=== PATIENT | male | born 1965 | race Caucasian/White ===

== ENCOUNTER 2023-06-01 16:06 | Emergency (ER) | payer MEDICARE, MEDICAID, SELFPAY ==
[2023-06-01 16:15] VITALS: BP 131/91; PULSE 101; RESP 19; TEMP 36.9; O2SAT 100; BMI 21.2
--- NOTE | 2023-06-01 16:21 | EXP.UTC ---
Discharge Plan Disposition Patient Disposition: Home, Self-Care Condition: Good Prescriptions Prescriptions: New ciprofloxacin HCl [Cipro] 500 mg tablet 500 mg PO BID 10 Days Qty: 20 0RF No Action pantoprazole 40 mg tablet,delayed release (DR/EC) 40 mg PO BID Patient Comments: TAKE ONE (1) TABLET BY MOUTH TWICE DAILY Referrals Follow up/Referrals: Tasha Gomes APRN [Primary Care Provider] - See instructions Activity Restrictions/Add. Instructions Additional Instructions/Restrictions: Drink plenty of fluids. Take tylenol for pain or fever. Take the medications as directed. Follow up with your regular doctor. GO TO THE ER FOR ANY WORSENING SYMPTOMS If your pain does not improve by later tonight, I want you to return and go to the ER to be evaluated for a kidney stone. Clinical Impressions Clinical Impression: Low back pain, UTI (urinary tract infection) Instructions Patient Instructions: Urinary Tract Infection, DI for Low Back Pain, Ciprofloxacin, Methylprednisolone Injection Discharge ED Provider: Olivier Rojas [facility] General Stated complaint: back pain Time Seen by Provider: 06/01/23 16:21 History of Present Illness Provider Complaint: He c/o low back pain for the past 3 days. He rates his pain as a 4/10 at this time. He denies any injury. He states that the pain was radiating down his right leg up until today. It has stopped radiating. The pain is not constant. 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 Related Data Home Medications Medication Instructions Recorded Confirmed pantoprazole 40 mg tablet,delayed 40 mg PO BID GERD 06/01/23 06/01/23 release Previous Rx's Medication Instructions Recorded ciprofloxacin HCl 500 mg tablet 500 mg PO BID 10 days #20 tabs 06/01/23 (Cipro) Allergies Allergy/AdvReac Type Severity Reaction Status Date / Time No Known Allergies Allergy Verified 06/01/23 16:34 [facility] Disclaimer: The information contained in this section may have been updated after the patient was seen, as this information can be updated by other users. Social History Smoking Status: Former smoker alcohol intake: former current occupational status: retired Travel in the last 8 weeks: None ROS Obtained: Yes All systems reviewed & no additional complaints except as documented Constitutional Constitutional: Denies chills and Denies fever(s) Eyes Eyes: Denies eye discharge ENT Ears, Nose, Mouth, and Throat: Denies dizziness, Denies otalgia and Denies sore throat Cardiovascular Cardiovascular: Denies chest pain Respiratory Respiratory: Denies shortness of breath, Denies chest congestion, Denies cough, Denies stridor and Denies wheezing Gastrointestinal Gastrointestingal: Denies nausea or vomiting Genitourinary Male Genitourinary: Reports as per HPI, Reports difficulty urinating, Reports flank pain, Denies hematuria, Reports urinary frequency, Reports urinary hesitancy, Denies urinary incontinence and Denies urinary urgency Musculoskeletal Musculoskeletal: Reports system reviewed and no additional complaints, except as documented and Denies arthralgias Integumentary/Breasts Skin/Breast: Denies rash Neurologic Neurologic: Denies dizziness and Denies paresthesias Allergic/Immunologic Allergic/Immunologic: Denies wheezing Physical Exam General General appearance: alert and in no apparent distress Head Head exam: atraumatic, normocephalic and normal inspection Eye Eye exam: Present normal appearance, PERRL and EOMI ENT ENT exam: Present normal exam, normal oropharynx, mucous membranes moist, TM's normal bilaterally and normal external ear exam Neck Neck exam: Present normal inspection, full ROM and trachea midline; Absent meningismus or lymphadenopathy Chest Chest inspection: Present normal inspection a
[2023-06-01 16:31] LABS: Apearance,Urine Cloudy (Clear); Color,Urine Dark Yellow (Yellow); Glucose,Urine (UA) Negative (Negative); Ketones,Urine Negative (Negative); PH,Urine 5.5 (5.0-8.5); Protein,Urine 1+ (Negative)
[2023-06-01 16:32] LABS: Bilirubin,Urine 1+ (Negative); Blood, Urine Trace (Negative); UTC Leukocyte Esterase,Urine Negative (Negative); UTC Nitrate,Urine Negative (Negative); Urobilinogen,Urine 0.2 EU/dl (0.2)
[2023-06-01 17:06] LABS: Basophils # 0.1 K/mm3 (0-0.2); Basophils % 0.8 % (0.1-2.0); Eosinophils # 0.3 K/mm3 (0.0-0.4); Eosinophils % 2.9 % (0.1-12.0); Hematocrit 43.9 % (42.0-52.0); Hemoglobin 14.3 g/dL (14.1-18.0); Lymphocytes # 2.4 K/mm3 (0.7-4.5); Lymphocytes % 23.1 % (10-50); Mean Corpuscular HGB Conc 32.5 g/dL (31.8-35.4); Mean Corpuscular Hemoglobin 28.8 pg (27.0-31.2); Mean Corpuscular Volume 88.4 fl (80-94); Mean Platelet Volume 7.7 fl (7.4-10.4); Monocytes # 0.9 K/mm3 (0.1-1.0); Monocytes % 8.2 % (1.7-9.3); Neutrophils # 6.9 K/mm3 (1.8-7.8); Neutrophils % 65.1 % (37.0-80.0); Platelet Count 346 K/mm3 (142-424); Red Blood Count 4.96 M/mm3 (4.60-6.20); White Blood Count 10.6 K/mm3 (4.8-10.8)
[2023-06-01 17:10] LABS: Chloride 100 mmol/L (98-107); Sodium 142 mmol/L (136-145)
[2023-06-01 17:11] LABS: Potassium 4.1 mmoL/L (3.5-5.1)
[2023-06-01 17:13] LABS: Alanine Aminotransferase 26 U/L (12-78); Albumin Level 4.9 g/dl (3.5-5.0); Albumin/Globulin Ratio 1.3 (1.1-1.8); Alkaline Phosphatase 92 U/L (38-126); Anion Gap 18.1 mEq/L (5-15); Aspartate Amino Transferase 33 U/L (17-59); Bilirubin,Total 0.4 mg/dl (0.2-1.3); Blood Urea Nitrogen 18 mg/dl (9-20); Calcium 9.2 mg/dl (8.4-10.2); Carbon Dioxide 28 mmol/L (22.0-30.0); Creatinine Clearance Estimated 49 mL/min (50-200); Estimated Glomerular Filt Rate 48 ml/min (>60); GFR (African American) 58 ML/MIN (>60); Globulin 3.8 g/dL (1.3-3.2); Glucose 96 mg/dl (74-100); Total Protein,Serum 8.7 g/dl (6.3-8.2)
[2023-06-01 18:17] VITALS: BP 131/91; PULSE 101; RESP 18; TEMP 36.9; O2SAT 100
== END 2023-06-01 18:00 | disposition home or self-care (01) ==
PROVIDERS: Emergency Provider Nurse Practitioner Family; PCP Nurse Practitioner Family
DX: N39.0 Urinary tract infection, site not specified (principal); M54.59 Other low back pain; Z87.891 Personal history of nicotine dependence
CPT/HCPCS: 80053; 81003; 85025; 96372; 99204; 99212; G0463

== ENCOUNTER 2023-06-19 15:43 | Emergency (ER) | payer MEDICARE, MEDICAID, SELFPAY ==
[2023-06-19 15:45] VITALS: BP 126/86; PULSE 78; RESP 18; TEMP 36.8; O2SAT 100; BMI 21.9
[2023-06-19 17:00] LABS: Microscopic, Urine URINE MICROSCOPIC (MICROSCOPIC)
[2023-06-19 17:09] LABS: Appearance,Urine CLEAR (Clear); Bilirubin,Urine Negative (Negative); Blood, Urine Negative (Negative); Color,Urine YELLOW (Yellow); Glucose,Urine (UA) Negative (Negative); Ketones,Urine Negative (Negative); Leukocyte Esterase,Urine Negative (Negative); Nitrate,Urine Negative (Negative); PH,Urine 5.5 (5.0-8.5); Protein,Urine Negative (Negative); Specific Gravity, Urine 1.025 (1.005-1.030); Urobilinogen,Urine 0.2 EU/dl (0.2)
[2023-06-19 17:32] VITALS: BP 0/0; PULSE 0; RESP 0; TEMP -17.7; TEMP 0; O2SAT 0
[2023-06-19 17:33] LABS: Squamous Epithelial Cell,Urine Occasional #/hpf (0-5)
--- NOTE | 2023-06-19 22:18 | HMH.EDGENADL ---
Discharge Plan Disposition Patient Disposition: Eloped Chief Complaint: PAIN Prescriptions Prescriptions: No Action pantoprazole 40 mg tablet,delayed release (DR/EC) 40 mg PO BID Patient Comments: TAKE ONE (1) TABLET BY MOUTH TWICE DAILY ciprofloxacin HCl [Cipro] 500 mg tablet 500 mg PO BID 10 Days Qty: 20 0RF Referrals Follow up/Referrals: Tasha Gomes APRN [Primary Care Provider] - See instructions Discharge ED Provider: Cory Deluca General Adult HPI General Chief complaint: PAIN Stated complaint: back pain Time Seen by Provider: 06/19/23 15:50 Mode of Arrival: Ambulatory Source of Information: Patient Limitations: No Limitations Description of Symptoms (Recalled from ER Triage Doc. by RN): c/o right kidney hurting, states that he was seen in [facility] 2 weeks ago said he had a kidney infection, was told if it did not get any better to come back due to possible kidney stone and he would need an picture of his kidney. History of Present Illness HPI narrative: Patient eloped prior to my evaluation Related Data Home Medications Medication Instructions Recorded Confirmed pantoprazole 40 mg tablet,delayed 40 mg PO BID GERD 06/01/23 06/01/23 release Previous Rx's Medication Instructions Recorded ciprofloxacin HCl 500 mg tablet 500 mg PO BID 10 days #20 tabs 06/01/23 (Cipro) Allergies Allergy/AdvReac Type Severity Reaction Status Date / Time No Known Allergies Allergy Verified 06/01/23 16:34 [facility] Disclaimer: The information contained in this section may have been updated after the patient was seen, as this information can be updated by other users. Social History (Updated 06/03/23 @ 19:36 by Olivier Rojas APRN) Smoking Status: Never smoker alcohol intake: former current occupational status: retired Travel in the last 8 weeks: None ROS Obtained: Yes other (Eloped) Physical Exam General General appearance: other (Eloped) Respiratory Respiratory exam: Present other (Eloped) Cardiovascular Cardiovascular exam: Present other (eloped) Neurological Exam Neurological exam: Present other (eloped ) Medical Decision Making Medical Records Medical records reviewed: Yes I reviewed the patient's medical records. Shamar Inquiry Pt receiving controlled substance: No Shamar was queried for this patient: No Vital Signs: 06/19/23 15:45 06/19/23 17:32 Temperature 98.3 F 0 F L Temperature Source Oral Pulse Rate 0 L Pulse Rate [Left Radial] 78 Respiratory Rate 18 0 L Blood Pressure 0/0 L Blood Pressure [Right Arm] 126/86 Blood Pressure Mean [Right Arm] 99 Blood Pressure Source [Right Arm] Automatic Cuff Blood Pressure Position [Right Arm] Sitting 02 Sat by Pulse Oximetry 100 Oxygen Delivery Method Room Air Lab Data Lab Results 06/19/23 16:23: Urine Color Yellow, Urine Appearance Clear, Urine pH 5.5, Ur Specific [place] 1.025, Urine Protein Negative, Urine Glucose (UA) Negative, Urine Ketones Negative, Urine Blood Negative, Urine Nitrate Negative, Urine Bilirubin Negative, Urine Urobilinogen 0.2, Ur Leukocyte Esterase Negative, Urine RBC None, Urine WBC None, Ur Squamous Epith Cells Occasional, Urine Bacteria None Orders (Tests/Meds): ORDERS Category Date Time Status Urinalysis and Microscopic Stat Lab 06/19/23 16:23 Completed Medical Decision Narrative: Patient eloped prior to my evaluation Critical Care Critical Care Time Critical Care Time: No
== END 2023-06-19 17:34 | disposition left against medical advice (07) ==
PROVIDERS: Emergency Provider Emergency Medicine; PCP Nurse Practitioner Family
DX: Z53.21 Procedure and treatment not carried out due to patient leaving prior to being seen by health care provider (principal)
CPT/HCPCS: 81001; 99281